=== PATIENT | female | born 1940 | race Caucasian/White ===

== ENCOUNTER 2020-04-04 07:37 | Outpatient (CLI) | payer MEDICARE, BC, OTHER ==
[2020-04-05 11:01] LABS: SARS-CoV-2 MS2 Positive; SARS-CoV-2 N Gene Negative; SARS-CoV-2 S Gene Negative; SARS-CoV-2 orf1ab Negative
== END 2020-04-04 07:38 | disposition home or self-care (01) ==
LOC: LABBT 07:37
PROVIDERS: ATTEND Ophthalmology Retina Specialist
DX: Z01.812 Encounter for preprocedural laboratory examination (principal); Z11.59 Encounter for screening for other viral diseases; H35.341 Macular cyst, hole, or pseudohole, right eye
CPT/HCPCS: 87635; U0003

== ENCOUNTER 2020-04-06 06:27 | Day surgery (SDC) | payer MEDICARE, BC ==
[2020-04-04 14:08] VITALS: BMI 31.1
[2020-04-06] MEDS ORDERED: Fluorouracil 100 MG, Enoxaparin Sodium 25 MG, EPINEPHrine 0.3 MG in Ophthalmic Irrigati... IRR SCH (06:39)
[2020-04-06] MEDS ORDERED: Fentanyl 100 MCG/2 ML VIAL ONE (06:40)
[2020-04-06] MEDS ORDERED: Midazolam HCl 2 mg/2 ml Vial ONE (06:40)
[2020-04-06] MEDS ORDERED: Cyclopentolate 1% Opth Drop 2 ML BOT ONE (06:54)
[2020-04-06] MEDS ORDERED: Phenylephrine 2.5% Ophth Soln 5 ML BOT ONE (06:54)
--- NOTE | 2020-04-06 09:52 | OP ---
DATE OF PROCEDURE: 04/06/2020 PREOPERATIVE DIAGNOSIS: Macular hole, right eye. POSTOPERATIVE DIAGNOSIS: Macular hole, right eye. PROCEDURES PERFORMED: Pars plana vitrectomy, macular hole repair, and internal limiting membrane peel; right eye. ANESTHESIA: Local with monitored anesthesia care. DESCRIPTION OF PROCEDURE: The patient was identified in the preoperative holding area. Appropriate informed consent for the planned surgical procedure on right eye had been obtained. The patient was transported to the operative suite, where appropriate cardiopulmonary monitoring was established. Local anesthesia was obtained using retrobulbar modified Van Lint lid block using 50:50 mixture of 4% lidocaine and 0.75% bupivacaine. The patient was prepped and draped in usual sterile manner for ophthalmic surgery on right eye. Lid speculum was placed in the right eye. A 25-gauge trocar was placed in the conjunctiva and sclera superotemporally, inferotemporally, and supranasally. Infusion line was placed inferotemporally, and light pipe vitreous cutter was inserted into the eye. Core vitrectomy was performed. Posterior hyaloid face was elevated using vacuum suction and peeled across the macula using end-gripping forceps. Indocyanine green dye was infused into the posterior pole x1, identifying the internal limiting membrane. This was elevated using membrane scraper and peeled across the macula. Indirect ophthalmoscopy was used to examine the retina 360 degrees. No holes, breaks, or tears were identified. 10 minutes being allowed for fluid to drain posteriorly. 28% sulfur hexafluoride gas was infused into the eye. Trocars were removed. The eye was noted to retain pressure well. Retrobulbar Kenalog and subconjunctival Ancef were placed. Antibiotic ointment was placed. Eye was patched and shielded. The patient was taken to postop recovery unit in good condition having suffered no immediate perioperative complications. The patient was instructed to keep patch shield on, avoid lifting or bending. Followup appointment with Dr. Wiley. Job ID: [id number]
[2020-04-06] MEDS ORDERED: Bupivacaine PF 0.75% SDV 10 ML ONE (13:24)
[2020-04-06] MEDS ORDERED: Lidocaine 4% PF 5 ML AMP ONE (13:24)
[2020-04-06] MEDS ORDERED: Indocyanine Green 25 MG/10 ML VIAL ONE (13:24)
[2020-04-06] MEDS ORDERED: Tobramycin/Dexamethasone Ophth Oint 3.5 GM TUBE ONE (13:24)
[2020-04-06] MEDS ORDERED: Triamcinolone 40 MG/ML VIAL ONE (13:24)
[2020-04-06] MEDS ORDERED: PROPOFOL 200 MG/20 ML VIAL ONE (13:24)
[2020-04-06] MEDS ORDERED: Lidocaine 1% PF 5 ML VIAL ONE (13:24)
[2020-04-06] MEDS ORDERED: CEFAZOLIN 1 GM VIAL ONE (13:24)
== END 2020-04-06 10:00 | disposition home or self-care (01) ==
LOC: SDC 06:27
PROVIDERS: ATTEND Ophthalmology Retina Specialist
PROC: 08T43ZZ Resection of Right Vitreous, Percutaneous Approach (ICD-10-PCS; principal; 2020-04-06)
PROC: 08NE3ZZ Release Right Retina, Percutaneous Approach (ICD-10-PCS; 2020-04-06)
DX: H35.341 Macular cyst, hole, or pseudohole, right eye (principal); I10 Essential (primary) hypertension; E78.5 Hyperlipidemia, unspecified; E03.9 Hypothyroidism, unspecified; Z87.891 Personal history of nicotine dependence; Z79.899 Other long term (current) drug therapy
CPT/HCPCS: 67025; J0171; J0690; J1650; J2001; J2250; J2704; J3010; J3301; J3490; J9190